=== PATIENT | male | born 1995 | race Caucasian/White ===

== ENCOUNTER 2018-09-23 17:45 | Emergency (ER) | payer SELFPAY ==
[2018-09-23 17:47] VITALS: BP 160/106; PULSE 94; RESP 16; TEMP 36.3; O2SAT 96; BMI 21.6
--- NOTE | 2018-09-23 18:40 | CM.ED ---
SOCIAL WORK INFORMANT: ANA LILIA JUNIOR AND DR. RIVAS REASON FOR CONSULT: MENTAL HEALTH MET WITH PATIENT IN ROOM. INTRODUCED ROLE AND REASON FOR REFERRAL. PATIENT IS A 23 Y/O SINGLE MALE WHO PRESENTS TO ED WITH COMPLIANT OF TINGLING IN BRAIN. PATIENT STATES LIVES HOME WITH MOTHER, BUT SLEEPS IN CAR. PATIENT REPORTS HX OF DRUG USE AND STATES, I'VE TRIED EVERYTHING. PATIENT STATES CURRENT USE OF LSD 1 WEEK AGO, AND METH YESTERDAY. PATIENT ALSO REPORTS USE OF MARIJUANA. PATIENT STATES WAS WORRIED THAT FROM THE LSD HE CONTRACTED SOME SORT OF INFECTION. PATIENT ADMITS TO HX OF MENTAL HEALTH-ANXIETY, DEPRESSION, AND PANIC ATTACKS. PATIENT DENIES ANY SUICIDAL OR HOMICIDAL IDEATIONS. PATIENT STATES WOULD BENEFIT FROM FOLLOW UP WITH PSYCHIATRIST. PATIENT OPEN TO THIS WORKER MAKING [facility] WITH RECOMMENDATION FOR PSYCH SERVICES. [facility], SPOKE WITH MANSI. INTAKE APPOINTMENT SCHEDULED FOR 09/25/18 AT 10:15A. UPDATED PATIENT ON APPOINTMENT TIME AND DATE. PATIENT REPORTS D/C PLAN IS FOR HOME WITH MOTHER BEFORE AND THAT SHE IS CURRENTLY IN THE WAITING ROOM. PATIENT DENIES ANY FURTHER NEEDS. DR. RIVAS AND NURSEANA LILIA UPDATED ON THE ABOVE. PLAN: HOME WITH INTAKE APPOINTMENT SCHEDULED WITH [facility] FOR [facility]/25/18 AT 10:15A. CHIDI HEARN, STARTER MECHANIC, LENS INSPECTOR.
[2018-09-23 19:31] LABS: Absolute Lymphocyte Count 2.63 X10^3/ul (0.83-4.51); Absolute Neutrophil Count 2.9 X10^3/uL (2.0-7.7); Basophil# 0.03 X10^3/uL; Basophil% 0.5 % (0-1); Eosinophil# 0.25 X10^3/uL; Eosinophils% 3.9 % (0-5); Hematocrit 42.8 % (40-54); Hemoglobin 14.8 g/dl (13.0-16.5); Lymphocyte # 2.63 X10^3/ul (4.0); Mean Corp Hgb Conc 34.6 g/gl (32-36); Mean Corpuscular Hgb 29.9 pg (27.0-32.0); Mean Corpuscular Volume 86.5 fL (80-94); Mean Platelet Vol. 9.7 fl (6.2-12.0); Monocyte% 9.3 % (0-10); Neutrophil % 45.1 % (47-70); POSITIVE COUNT NO; POSITIVE DIFFERENTIAL NO; POSITIVE MORPHOLOGY NO; Platelet Count 244 K/mm3 (150-450); RBC Distribution Width CV 12.5 % (11.6-14.6); RBC Distribution Width SD 39.9 fl (35.1-43.9); Red Blood Count 4.95 M/mm3 (4.6-6.2); White Blood Count 6.4 K/mm3 (4.4-11.0)
[2018-09-23 19:42] LABS: Anion Gap 2 (5-15); BUN 20 mg/dL (7-18); BUN/Creat Ratio 17.5 RATIO (10-20); Calcium,Total 8.8 mg/dL (8.5-10.1); Chloride 107 mmol/L (98-107); Creatinine, Serum 1.14 mg/dL (0.70-1.30); EST Glomerular Filtration Rate 85 mL/min (>60); Est Glom Filt Rate - Afr Amer 103 mL/min (>60); Estimated Creatinine Clearance 101.07 ml/min; Glucose 79 mg/dL (74-106); Potassium 4.1 mmol/L (3.5-5.1); Sodium Level 139 mmol/L (136-145)
[2018-09-23] MEDS: 0.9% Normal Saline 1,000 ML 1000 ML IV (19:47)
[2018-09-23 20:01] LABS: Carboxyhemoglobin Frac (CO) 4.7 % (0.0-1.5)
[2018-09-23 20:42] VITALS: BP 157/84; PULSE 80; RESP 16; O2SAT 100
--- NOTE | 2018-09-23 21:19 | ED.DCSUM_ITS ---
- ER Visit Summary Date of Service: 09/23/18 Chief Complaint: Dizziness History of Present Illness: The patient is a 23 M who presents with dizziness that has been constant for the past 3 days. Patient describes as a lightheadedness. Patient states it is worse with standing. Patient states the exhausted in his car may be broken. Patient admits to subjective chills but denies any fevers. Patient admits to some rhinorrhea. Patient also admits to some palpitations and occasional shortness of breath. Patient admits to a rash over his left axilla and lower legs. Patient states the rash is pruritic. Patient states he has been itching the area. Patient denies any new soaps, detergents, or other exposures. Patient thinks he was bitten by mosquitoes on his lower legs. Physical Examination: Vital signs are stable. Patient is afebrile. Patient is in no acute distress. Oromucosa is pink and moist. Neck is supple. Trachea is midline. There is no JVD noted. Heart was regular rate and rhythm. Lungs are clear and equal bilaterally. Abdomen is soft and nontender. Skin is warm dry. There is some mild erythema and excoriations over the anterior aspects of the lower legs. There is no active discharge or drainage. There is some mild erythema in the left axilla. There are no vesicles or pustules noted. There is no drainage noted. Cranial nerves II through XII are intact. There are no focal motor or sensory deficits noted. Test Results: CBC and basic metabolic profile were within normal limits. Venous carboxyhemoglobin was obtained since he thinks the exhaust is broken in his car and was 4.7. Emergency Department Course and Treatment: Patient felt better on reevaluation. Patient was instructed to use Benadryl as needed for any itching. Patient was advised that this may help with his anxiety as well. She was instructed to follow-up with his primary care physician in 5 to 7 days. Patient understood and was agreeable with the plan. All questions were answered. Disposition: Discharge home Impression: Dizziness This note was generated with [employer] software. It may contain incorrect words, spelling, and punctuation that were not noted in review of the chart prior to signing ED Disposition - Plan for ED Patient: Disposition: Home or Assisted Living Diagnosis: Dizziness Instructions: DIZZINESS, Unk Cause Referrals: Rushford,Charo, [employer]-[facility] [Primary Care Provider] - 3-5 Days
[2018-09-23 21:26] VITALS: RESP 17
== END 2018-09-23 21:29 | disposition home or self-care (01) ==
PROVIDERS: Emergency Provider Emergency Medicine; PCP Nurse Practitioner Family
DX: R42 Dizziness and giddiness (principal); Z72.0 Tobacco use
CPT/HCPCS: 80048; 82375; 85025; 96360; 99283; J7030

== ENCOUNTER 2021-03-28 13:03 | Emergency (ER) | payer SELFPAY ==
[2021-03-28 13:03] VITALS: BP 133/109; PULSE 107; RESP 18; TEMP 36.6; O2SAT 100; BMI 28.0
--- NOTE | 2021-03-28 15:30 | EKG12_ITS ---
Test Reason : GEN ILLNESS Blood Pressure : / mmHG Vent. Rate : 093 BPM Atrial Rate : 093 BPM P-R Int : 148 ms QRS Dur : 102 ms QT Int : 354 ms P-R-T Axes : 049 022 026 degrees QTc Int : 440 ms Normal sinus rhythm Normal ECG Confirmed by JAY LEON, FARZANA ([id number]), advertising editor YANDEL PADILLA ([id number]) on 03/29/2021 10:47:22 AM Referred By: LAILA Confirmed By:FARZANA THOMPSON MD
--- NOTE | 2021-03-28 15:31 | EX.ED.DYSGE1 ---
HPI History of Present Illness Chief Complaint: General Illness Informant: patient Narrative Narrative: 26-year-old male states that a few days ago he relapsed on methamphetamines IV injection. States the second feeling poorly right at that moment. He states that most people in his family have had a respiratory illness and has had a slight cough. This morning he felt that his joints were swollen on his tendons ached and is worried that he has sepsis from injection. So while being worried that he had sepsis he decided to inject methamphetamines again thinking that it may help unfortunately he states it did not help. He denies any rashes. He denies any abscesses. No diarrhea. Mild rhinorrhea. PFSH PFS Medical History Active intravenous drug use Home Medications NK 09/23/18 [History Last Taken Unknown] Allergy/AdvReac Type Severity Reaction Status Date / Time No Known Allergies Allergy Verified 03/28/21 13:05 Social History (Updated 03/28/21 @ 15:[address] Tristan Staton, DO) Smoking Status: Current every day smoker tobacco type: cigarettes substance use type: amphetamines, IV drugs and methamphetamine ROS ROS ED Constitutional Constitutional ED: Denies chills, fever(s) or weight loss Eyes Eyes: Denies change in vision or diplopia ENT ENT ED: Reports rhinorrhea; Denies ear pain or sore throat Cardiovascular Cardiovascular: Denies chest pain, orthopnea, palpitations or racing heartbeat Respiratory/Chest Respiratory/Chest: Reports cough; Denies dyspnea or orthopnea Gastrointestinal Gastrointestinal: Denies abdominal pain, diarrhea, nausea or vomiting Genitourinary Genitourinary ED: Denies dysuria, hematuria or urinary frequency Musculoskeletal Musculoskeletal: Reports arthralgias and myalgias Integumentary Denies abscess or rash Neurologic Neurologic: Reports headache(s); Denies weakness Psychiatric Psychiatric: Denies anxiety, depression, suicidal ideation or suicidal thoughts Endocrine Endocrinology: Denies polydipsia, polyphagia or polyuria Allergic/Immunologic Allergic/Immunologic ED: Denies mouth swelling, tongue swelling or urticaria EXAM Physical Exam Const Vital Signs: 03/28/21 13:03 03/28/21 15:49 Temperature 97.8 F Temperature Source Temporal Pulse Rate 107 H Respiratory Rate 18 Respiratory Effort Normal Non-Labored Respiratory Pattern Normal Blood Pressure 133/109 H Blood Pressure Mean 117 Pulse Ox 100 Oxygen Delivery Method Room Air Positive well nourished and well developed General Appearance ED: well developed HEENT Reports normocephalic, head/scalp atraumatic, TM's clear and moist mucous membranes HEENT Narrative: Patient reports being unable to close his jaw but he has full mouth opening and no malocclusion when I examined his teeth. trauma Tympanic Membrane ED: Yes TM's clear Eyes PERRL and EOMs intact bilaterally Neck no lymphadenopathy, supple and no JVD Resp normal respiratory effort and clear to auscultation bilaterally Cardio regular rate and no murmurs Rate: tachycardic GI normal to inspection, nondistended, normoactive bowel sounds and non-tender Palpation: soft Back/Spine no CVA tenderness and normal ROM Extremity normal to inspection Extremity Narrative: Appreciate any significant joint effusions. I do not appreciate rashes or abscess. His injection sites appear clean. General Extremety ED: Negative for edema General Extremity: Negative for edema Neuro oriented x3 and CN's II-XII intact bilaterally Sensorium / Orientation: alert Motor Exam: strength 5/5 throughout Psych mental status grossly normal Mood & Affect: Negative for depressed or tearful Skin no rashes or lesions noted and no wounds MDM MDM MDM Narrative Medical decision making narrative: Basic blood work is rather unremarkable. His lactic acid is normal. My interpretation of the chest x-ray is no acute process. The patient's influenza and Covid swabs were negative. Patient would like to have an HIV test and I can add this on. He does not need to wait for the results. The patient will be referred to primary care and to 180. Lab Data Attestation: I reviewed the patient's lab results. Labs: Laboratory Results - last 24 hr 03/28/21 03/28/21 03/28/21 15:45 15:45 15:45 WBC 8.4 RBC 4.96 Hgb 14.9 Hct 42.1 MCV 84.9 MCH 30.0 MCHC 35.4 RDW Std Deviation 40.6 RDW Coeff of Kiara 13.1 Plt Count 217 MPV 10.3 Immature Gran % (Auto) 0.100 Neut % (Auto) 51.2 Lymph % (Auto) 32.5 [place] % (Auto) 12.4 H Eos % (Auto) 3.3 Baso % (Auto) 0.5 Absolute Neuts (auto) 4.3 Absolute Lymphs (auto) 2.74 Nucleated RBC % 0 Sodium 139 Potassium 3.3 L Chloride 109 H Carbon Dioxide 23.0 Anion Gap 7 BUN 16 Creatinine 1.03 Estim Creat Clear Calc 109.63 Est GFR (MDRD) Af Amer 113 Est GFR (MDRD) Non-Af 93 BUN/Creatinine Ratio 15.5 Glucose 97 Lactic Acid 1.0 Calcium 9.5 Total Bilirubin 0.90 AST 18 ALT 31 Alkaline Phosphatase 94 Total Protein 7.9 Albumin 4.2 Globulin 3.7 Albumin/Globulin Ratio 1.1 Urine Color Urine Clarity Urine pH Ur Specific [place] Urine Protein Urine Glucose (UA) Urine Ketones Urine Occult Blood Urine Nitrite Urine Bilirubin Urine Urobilinogen Ur Leukocyte Esterase Urine RBC Urine WBC Ur Squamous Epith Cells Urine Bacteria Urine Mucus 03/28/21 16:00 WBC RBC Hgb Hct MCV MCH MCHC RDW Std Deviation RDW Coeff of Kiara Plt Count MPV Immature Gran % (Auto) Neut % (Auto) Lymph % (Auto) [place] % (Auto) Eos % (Auto) Baso % (Auto) Absolute Neuts (auto) Absolute Lymphs (auto) Nucleated RBC % Sodium Potassium Chloride Carbon Dioxide Anion Gap BUN Creatinine Estim Creat Clear Calc Est GFR (MDRD) Af Amer Est GFR (MDRD) Non-Af BUN/Creatinine Ratio Glucose Lactic Acid Calcium Total Bilirubin AST ALT Alkaline Phosphatase Total Protein Albumin Globulin Albumin/Globulin Ratio Urine Color Yellow Urine Clarity Clear Urine pH 6.5 Ur Specific [place] 1.020 Urine Protein Negative Urine Glucose (UA) Normal Urine Ketones 50 H Urine Occult Blood Negative Urine Nitrite Negative Urine Bilirubin Negative Urine Urobilinogen 1 H Ur Leukocyte Esterase Negative Urine RBC 0 SEEN Urine WBC 0 SEEN Ur Squamous Epith Cells 0 SEEN Urine Bacteria 0 SEEN Urine Mucus 0 SEEN Radiography Diagnostic Testing: Clinical Impression(s) from Imaging Studies Chest X-Ray 03/28/21 15:55 IMPRESSION: Normal x-ray examination of the chest. Electronically Signed: Eric Rosario MD at 16:11 EST Tel , Service support , EKG Initial EKG: Attestation: I personally reviewed and interpreted this EKG as follows: Comments: Normal sinus rhythm with a ventricular rate of 93 bpm. No concerning features of ACS or ectopy noted Discharge Plan Triage Chief Complaint: General Illness ED Provider: Tristan Staton Dx/Rx/DC Orders Clinical Impression: Active intravenous drug use, Methamphetamine abuse, Acute viral syndrome Instructions: ED Viral Syndrome (Adult) Prescriptions: No Action NK RF: 0 Primary Care Provider: Care Physician,No Primary Referrals: Roger Waddell MD [STAFF PHYSICIAN] - As soon as possible Care Physician,No Primary [Primary Care Provider] - [facility] [STAFF PHYSICIAN] - As soon as possible (for your drug abuse) Disposition Disposition: Home, Self Care
--- NOTE | 2021-03-28 15:34 | NURSING ---
NO OLD EKGS
[2021-03-28 15:55] LABS: Absolute Lymphocyte Count 2.74 X10^3/uL (0.83-4.51); Absolute Neutrophil Count 4.3 X10^3/uL (2.0-7.7); Basophil# 0.04 X10^3/uL; Basophil% 0.5 % (0-1); Eosinophil# 0.28 X10^3/uL; Eosinophils% 3.3 % (0-5); Hematocrit 42.1 % (40-54); Hemoglobin 14.9 g/dL (13.0-16.5); Lymphocyte # 2.74 X10^3/ul (0.83-4.51); Lymphocyte % 32.5 % (19-41); Mean Corp Hgb Conc 35.4 g/dL (32-36); Mean Corpuscular Volume 84.9 fL (80-94); Mean Platelet Vol. 10.3 fl (6.2-12.0); Monocyte# 1.05 X10^3/uL; Monocyte% 12.4 % (0-10); NRBC Flagged by Analyzer 0 % (0-5); Neutrophil # 4.32 X10^3/uL (2.7-7.7); Neutrophil % 51.2 % (47-70); Platelet Count 217 K/mm3 (150-450); RBC Distribution Width CV 13.1 % (11.6-14.6); RBC Distribution Width SD 40.6 fl (35.1-43.9); Red Blood Count 4.96 M/mm3 (4.6-6.2); White Blood Count 8.4 K/mm3 (4.4-11.0)
--- NOTE | 2021-03-28 15:55 | RAD_ITS ---
STUDY: X-RAY CHEST REASON FOR EXAM: Male, 26 years old. cough TECHNIQUE: Single AP portable view of the chest. COMPARISON: 12/03/2016 FINDINGS: The lungs are clear and expanded. There is no demonstrated pleural abnormality. Normal size heart. Normal mediastinum and fauzia. Normal visualized pulmonary arteries. Normal visualized aortic arch and descending thoracic aorta. Normal visualized thoracic spine. Normal visualized ribs, clavicles, and shoulders. There is no demonstrated abnormality of the visualized soft tissue structures of the upper abdomen. RAD/Chest 1 View (Portable) IMPRESSION: Normal x-ray examination of the chest. Electronically Signed: Eric Rosario MD at 16:11 EST Tel , Service support ,
[2021-03-28 16:06] LABS: Bacteria 0 SEEN /hpf (None Seen); Mucous, Urine 0 SEEN /hpf (<or=2+); Red Blood Cells-Urine 0 SEEN /hpf (0-5); Squamous Epithelial Cells - UA 0 SEEN /hpf (0-5); White Blood Cells 0 SEEN /hpf (0-5)
[2021-03-28 16:10] LABS: ALB/GLOB Ratio 1.1 RATIO (0.9-2.4); AST(SGOT) 18 U/L (15-37); Alanine Aminotransfer ALT/SGPT 31 U/L (16-61); Albumin, Serum 4.2 g/dL (3.2-5.0); Alkaline Phosphatase 94 U/L (45-117); Anion Gap 7 (5-15); BUN 16 mg/dL (7-18); BUN/Creat Ratio 15.5 RATIO (10-20); Calcium,Total 9.5 mg/dL (8.5-10.1); Chloride 109 mmol/L (98-107); Creatinine, Serum 1.03 mg/dL (0.70-1.30); EST Glomerular Filtration Rate 93 mL/min (>60); Est Glom Filt Rate - Afr Amer 113 mL/min (>60); Estimated Creatinine Clearance 109.63 ml/min; Globulin 3.7 g/dL (2.2-4.2); Glucose 97 mg/dL (74-106); Potassium 3.3 mmol/L (3.5-5.1); Protein, Total 7.9 g/dL (6.4-8.2); Sodium Level 139 mmol/L (136-145)
[2021-03-28 16:11] LABS: Color, Urine Yellow (Yellow); Glucose, Dipstick Normal (Normal); Ketone-Dipstick 50 mg/dl (Negative); Leukocyte Esterase-Dipstick Negative /ul (Negative); Nitrite-Dipstick Negative (Negative); Occult Blood-Urine Negative /ul (Negative); Protein-Dipstick Negative (Negative); Urine Bilirubin Dipstick Negative (Negative); Urine Clarity Clear (Clear); Urine Urobilinogen 1 mg/dl (Normal); Urine pH 6.5 (5.0 - 8.0)
[2021-03-28 17:32] VITALS: BP 183/107; PULSE 76; RESP 14; O2SAT 99
[2021-03-28 18:29] LABS: HIV - WCH Non-Reactive (Nonreactive)
== END 2021-03-28 17:33 | disposition home or self-care (01) ==
PROVIDERS: Emergency Provider Emergency Medicine; Visit Provider Emergency Medicine
DX: B34.9 Viral infection, unspecified (principal); F15.10 Other stimulant abuse, uncomplicated; F17.210 Nicotine dependence, cigarettes, uncomplicated
CPT/HCPCS: 71045; 80053; 81001; 83605; 85025; 86703; 87426; 87804; 93005; 99284; A4216

== ENCOUNTER → 2022-04-03 | Outpatient (CLI) | payer OTHER, SELFPAY ==
--- NOTE | 2022-04-03 08:10 | MRI_ITS ---
STUDY: MRI LUMBAR SPINE WITHOUT CONTRAST REASON FOR EXAM: Male, 27 years old. WEDGE COMPRESSION FRACTURE L1,L2 TECHNIQUE: Standardized fat and water weighted pulse sequences were obtained in the sagittal and axial planes. COMPARISON: None FINDINGS: T11-T12: (Sagittal only). Normal endplates. Normal disc height, hydration and morphology. Normal central canal and bilateral intervertebral neural foramina. T12-L1: (Sagittal only). Normal T12 inferior endplate. Mild anterior wedge compression fracture of the upper L1 vertebral body with bone edema of the underlying vertebral marrow and mild increased anterior disc space height. Normal central canal and bilateral intervertebral neural foramina. Normal lumbar lordosis. There is no substantial scoliosis. Normal conus medullaris that terminates at the T12-L1 disc space level. L1-2: Normal L1 inferior endplate. Minimal recent fracture line underneath the L2 superior endplate with bone edema of the vertebral marrow. Normal disc space height, hydration and morphology. Normal facet joints. Normal central canal and bilateral lateral recesses. Normal bilateral intervertebral neural foramina. L2-3: Normal L2 inferior endplate. Mild recent fracture in the anterior upper L3 vertebral body with abnormal edema L3 vertebral marrow across the upper two thirds of the vertebral body. Minimal disc space height narrowing. Normal disc hydration and morphology. Normal facet joints. Normal central canal and bilateral lateral recesses. Normal bilateral intervertebral neural foramina. L3-4: Normal endplates. Normal disc height, hydration and morphology. Normal bilateral facet joints. Normal central canal and bilateral lateral recesses. Normal bilateral intervertebral neural foramina. L4-5: Normal endplates. Minimal disc space height narrowing. Normal disc hydration. Minimal ventral extradural defect due to small posterior bulging annulus. Normal facet joints. Normal central canal and bilateral lateral recesses. Normal bilateral intervertebral neural foramina. L5-S1: Normal endplates. Mild disc space height narrowing. Normal facet joints. Normal central canal and bilateral lateral recesses. Normal bilateral intervertebral neural foramina. Normal visualized sacral ala. Normal visualized paraspinous soft tissue structures. MRI/Spine Lumbar (Routine) IMPRESSION: 1. Mild recent fractures of the upper L1, L2 and L3 vertebral bodies. 2. No MRI evidence of lumbar extruded disc fragment, spinal stenosis or nerve root displacement. Electronically Signed: Loki Summers MD at 9:55 EST ,
== END | disposition home or self-care (01) ==
LOC: MRI 08:03
PROVIDERS: Referring Provider Orthopaedic Surgery; Visit Provider Orthopaedic Surgery
DX: S32.010A Wedge compression fracture of first lumbar vertebra, initial encounter for closed fracture (principal); S32.020A Wedge compression fracture of second lumbar vertebra, initial encounter for closed fracture; W11.XXXA Fall on and from ladder, initial encounter
CPT/HCPCS: 72148